=== PATIENT | male | born 1990 | race Caucasian/White ===

== ENCOUNTER 2016-04-18 19:51 | Emergency (ER) | payer SELFPAY ==
[~2016-04-18 19:51] MED LIST: NORCO1 TA1 PO
--- NOTE | 2016-04-18 21:28 | ED NURSING NOTES ---
Clinical Report - Nurses [facility] [address] [place] [address] 04/18/2016 19:52 Patient: JP ARMENDARIZ TRIAGE Triage time 20:38 Apr 18 2016. Acuity: LEVEL 4. Chief Complaint: LEFT EAR PAIN. SEPSIS SCREEN: Sepsis Screen. Negative (no infection suspected/documented). --20:43 Milady Duff R.N. 20:38 04/18/16. BP: 114/76. HR: 88. RR: 16. O2 saturation: 100%. Temp: 99.0 F. Pain level now 4/10. --20:43 Milady Duff R.N. Weight: 65.7 kg stated. Height/Length: 67 inches. BMI: 22.7. --20:37 Milady Duff R.N. Medications None. --20:38 Milady Duff R.N. Medication/allergy information source: the patient. --20:43 Milady Duff R.N. Allergies No Known Drug Allergy. --20:38 Milady Duff R.N. History Arrived by private vehicle. Historian: patient. This started just prior to arrival. ( states always has ear drainage from left ear, felt fb sensation in lt ear, used tweezers and georgi pin to try and retrieve it.). He has had ear drainage. Treatment DIRECTOR INTERNAL COMMUNICATIONS: None. SOCIAL HX: Heavy tobacco smoker (cigarette)- 1-2 packs per day. Occasional alcohol use. History of drug use: marijuana. No infectious disease exposure. ABUSE ASSESSMENT: No report of abuse. SELF HARM ASSESSMENT: A self harm assessment was performed. The patient answered "no" to the question "Have you recently felt down, depressed, or hopeless?", "Have you noticed less interest or pleasure in doing things?", "Do you have thoughts of harming or killing yourself?", "Are you here because you tried to hurt yourself?", "Have you ever tried to hurt yourself before today?", "Have you recently had thoughts about harming or killing others?" and "Do you have any dangerous items in your possession?". NUTRITIONAL RISK ASSESSMENT: The nutritional risk assessment revealed no deficiencies. FUNCTIONAL ASSESSMENT: Functional assessment: no impairments noted. LEARNING NEEDS ASSESSMENT: The learning needs assessment revealed no barriers. SKIN INTEGRITY ASSESSMENT: Skin integrity risk assessment completed. No skin integrity risk identified. --20:43 Milady Duff R.N. PROBLEMS: Cholecystitis. Dehydration. Abdominal Pain. Left ear drum perforation. --20:39 Milady Duff R.N. ADDITIONAL SURGERIES: Ear surgery. --20:39 Milady Duff R.N. Interventions ID band on patient. --20:43 Milady Duff R.N. PHYSICAL ASSESSMENT Ambulatory to room. GENERAL / NEURO / PSYCH: Alert. Appears in no acute distress. HEENT: No facial asymmetry noted. Pupils equal, round and reactive to light. EOM intact. Left ear abnormal. Right ear within normal limits. Pharynx within normal limits. RESPIRATORY: Respirations not labored. CVS: Capillary refill less than 2 seconds. SKIN: Skin is warm and dry. --20:43 Milady Duff R.N. NURSING PROGRESS NOTES 20:43 04/18/16. The initial plan of care for this patient includes an assessment with efforts to address the presence of pain. This plan of care was discussed with the patient. Reassurance given. Two patient identifiers checked. Call light placed in reach. Side rails up x 1. Bed placed in lowest position. Brakes of bed on. Care transferred. --20:43 Milady Duff R.N. DISPOSITION / DISCHARGE Condition at departure: unchanged and stable. The goals identified in the patient's plan of care were met. No learning barriers present. Discharge instructions provided and reviewed with the patient. Reviewed referral to a primary care physician for followup. Patient verbalized understanding. Written instructions provided in Slovak. The patient was discharged home and accompanied by ornamental rail installer. He left the Emergency Department ambulatory and via private vehicle. Research Analyst driving. FALL RISK ASSESSMENT: Fall risk assessment completed. No fall risk identified. --21:01 Milady Duff R.N. 20:38 04/18/16. BP: 114/76. HR: 88. RR: 16. O2 saturation: 100%. Temp: 99.0 F. Pain level now 10. --21:01 Milady Duff R.N. Departure time: 21:Apr 18 2016. --21:01 Milady Duff R.N. Locked/Released at 04/18/2016 21:01 by Milady Duff R.N.
--- NOTE | 2016-04-18 21:28 | ED CLINICAL REPORT ---
Clinical Report - Physicians/Mid Levels Located Within [facility] [address] [place] [address] 04/18/2016 19:52 Patient: JP ARMENDARIZ Time Seen: 21:16; initial patient contact, initial documentation, patient care assumed. Arrived- By private vehicle. Historian- patient. HISTORY OF PRESENT ILLNESS Chief Complaint: EARACHE. Modifying factors. Not worsened by anything. Not relieved by anything. This started just prior to arrival and is still present. Location- left ear. The pain is described as moderate. The patient has had ear pain and drainage. No nasal discharge or congestion, sinus pressure, complaint of foreign body in the ear or ear trauma. No recent barotrauma, tinnitus or sore throat. (puts cotton in his ear daily for ear drainage, and thought he didn't get all the cotton out, so used tweezers to remove cotton, and ear started bleeding and hurts, now here). Similar symptoms previously: Once, chronically, as bad. ( states he ruptured his L eardrum when he was about 8 years old and since then has chronic ear drainage). Recent medical care: Not recently seen/assessed. REVIEW OF SYSTEMS No fever or cough. All systems otherwise negative, except as recorded above. PAST HISTORY See nurses notes. PROBLEMS: Cholecystitis. Dehydration. Abdominal Pain. Left ear drum perforation. --20:39 Milady Duff R.N. ADDITIONAL SURGERIES: Ear surgery. --20:39 Milady Duff RJaquelin. SOCIAL HISTORY Heavy tobacco smoker. Occasional alcohol use. History of occasional drug use: marijuana. Not exposed to second-hand smoke at home. No recent travel. Is a local resident. FAMILY HISTORY Negative. ADDITIONAL NOTES The nursing notes have been reviewed with agreement regarding the chief complaint, HPI, ROS, PMH and patient medications and allergies. PHYSICAL EXAM Vital Signs: 04/18/2016 20:38 BP: 114/76. HR: 88. RR: 16. O2 saturation: 100%. Temp: 99.0 F. Have been reviewed as normal and appear to be correct. Appearance: Alert. No acute distress. Eyes: Eyes normal inspection. ENT: (tm obscured by growth in canal). Nose: Nose normal. Ear (right): Right ear normal. Right tympanic membrane normal. Ear (left): There is discharge in the external canal (white dc seen with mass in canal, ? tumor, polyp). There is loss of tympanic membrane landmarks. The tympanic membrane is obscured. Left ear abnormal or tympanic membrane abnormal. Throat: Pharynx normal. Neck: Normal inspection. Neck supple. Respiratory: No respiratory distress. Skin: Skin warm and dry. Normal skin color. No rash. Normal skin turgor. Extremities: Extremities exhibit normal ROM. No lower extremity edema. Neuro: Oriented X 3. No motor deficit. No sensory deficit. PROGRESS AND PROCEDURES Patient counseled in person regarding the patient's stable condition and diagnosis. 21:28. Differential Diagnosis: Other possible considerations: ear ca, tumor, polyp, scar tissue/adhesions, ruptured tm, fb. Above considerations are based on history and physical exam. Differential diagnosis was discussed with patient. Disposition: Discharged home in good and improved condition (21:28). Condition: good and stable. CLINICAL IMPRESSION Acute left otalgia. INSTRUCTIONS Warnings: GENERAL WARNINGS: Return or contact your physician immediately if your condition worsens or changes unexpectedly, if not improving as expected, or if other problems arise. Specifically return if problem worsens. Prescription Medications: Amoxicillin 500 mg tablets: Take 1 orally every 8 hours for 10 days. Dispense thirty (30). No refills. Floxin otic solution: instill 10 drops into affected ear every 12 hours for 7 days. Dispense ten (10) mL. No refills. Substitution is permissible. Understanding of the discharge instructions verbalized by patient. Follow-up with: Mario Barrios MD, ENT, , [facility], [address] [place] [address], [facility], [address] Follow up in about three days even if well. Call for an appointment. Summary of care provided to patient. (Electronically signed by Lalita Green A.R.N.P. 04/18/2016 22:46) Addenda for JP ARMENDARIZ VisitID: [id number] Date: 04/18/2016 04/18/2016 21:03 incorrect dc time (Electronically signed by Milady Duff R.N. - 04/18/2016 21:03) 04/18/2016 21:40 Amoxicillin PO Capsules 500 mg given. Allergies verified and confirmed 5 rights. (Electronically signed by Milady Duff R.N. - 04/18/2016 21:40) 04/18/2016 21:40 correct discharge time should be 21:40 (Electronically signed by Milady Duff R.N. - 04/18/2016 21:40) 04/18/2016 21:41 ultram 50 mg given po allergies confirmed 5 rights, at 21:40 (Electronically signed by Milady Duff R.N. - 04/18/2016 21:41) 06/08/2016 12:50 CHART REVIEWED AND LOCKED FOR BILLING PROCESSING (Electronically signed by Megan Parker R.N. - 06/08/2016 12:50)
--- NOTE | 2016-04-18 21:28 | ED CLINICAL REPORT ---
Clinical Report - Physicians/Mid Levels [facility] [address] [place] [address] 04/18/2016 19:52 Patient: JP ARMENDARIZ Time Seen: 21:16; initial patient contact, initial documentation, patient care assumed. Arrived- By private vehicle. Historian- patient. HISTORY OF PRESENT ILLNESS Chief Complaint: EARACHE. Modifying factors. Not worsened by anything. Not relieved by anything. This started just prior to arrival and is still present. Location- left ear. The pain is described as moderate. The patient has had ear pain and drainage. No nasal discharge or congestion, sinus pressure, complaint of foreign body in the ear or ear trauma. No recent barotrauma, tinnitus or sore throat. (puts cotton in his ear daily for ear drainage, and thought he didn't get all the cotton out, so used tweezers to remove cotton, and ear started bleeding and hurts, now here). Similar symptoms previously: Once, chronically, as bad. ( states he ruptured his L eardrum when he was about 8 years old and since then has chronic ear drainage). Recent medical care: Not recently seen/assessed. REVIEW OF SYSTEMS No fever or cough. All systems otherwise negative, except as recorded above. PAST HISTORY See nurses notes. PROBLEMS: Cholecystitis. Dehydration. Abdominal Pain. Left ear drum perforation. --20:39 Milady Duff R.N. ADDITIONAL SURGERIES: Ear surgery. --20:39 Milady Duff RJaquelin. SOCIAL HISTORY Heavy tobacco smoker. Occasional alcohol use. History of occasional drug use: marijuana. Not exposed to second-hand smoke at home. No recent travel. Is a local resident. FAMILY HISTORY Negative. ADDITIONAL NOTES The nursing notes have been reviewed with agreement regarding the chief complaint, HPI, ROS, PMH and patient medications and allergies. PHYSICAL EXAM Vital Signs: 04/18/2016 20:38 BP: 114/76. HR: 88. RR: 16. O2 saturation: 100%. Temp: 99.0 F. Have been reviewed as normal and appear to be correct. Appearance: Alert. No acute distress. Eyes: Eyes normal inspection. ENT: (tm obscured by growth in canal). Nose: Nose normal. Ear (right): Right ear normal. Right tympanic membrane normal. Ear (left): There is discharge in the external canal (white dc seen with mass in canal, ? tumor, polyp). There is loss of tympanic membrane landmarks. The tympanic membrane is obscured. Left ear abnormal or tympanic membrane abnormal. Throat: Pharynx normal. Neck: Normal inspection. Neck supple. Respiratory: No respiratory distress. Skin: Skin warm and dry. Normal skin color. No rash. Normal skin turgor. Extremities: Extremities exhibit normal ROM. No lower extremity edema. Neuro: Oriented X 3. No motor deficit. No sensory deficit. PROGRESS AND PROCEDURES Patient counseled in person regarding the patient's stable condition and diagnosis. 21:28. Differential Diagnosis: Other possible considerations: ear ca, tumor, polyp, scar tissue/adhesions, ruptured tm, fb. Above considerations are based on history and physical exam. Differential diagnosis was discussed with patient. Disposition: Discharged home in good and improved condition (21:28). Condition: good and stable. CLINICAL IMPRESSION Acute left otalgia. INSTRUCTIONS Warnings: GENERAL WARNINGS: Return or contact your physician immediately if your condition worsens or changes unexpectedly, if not improving as expected, or if other problems arise. Specifically return if problem worsens. Prescription Medications: Amoxicillin 500 mg tablets: Take 1 orally every 8 hours for 10 days. Dispense thirty (30). No refills. Floxin otic solution: instill 10 drops into affected ear every 12 hours for 7 days. Dispense ten (10) mL. No refills. Substitution is permissible. Understanding of the discharge instructions verbalized by patient. Follow-up with: Mario Barrios MD, ENT, , [facility], [address] [place] [address], [facility], [address] Follow up in about three days even if well. Call for an appointment. Summary of care provided to patient. (Electronically signed by Lalita Green A.R.N.P. 04/18/2016 22:46) Addenda for JP ARMENDARIZ VisitID: [id number] Date: 04/18/2016 04/18/2016 21:03 incorrect dc time (Electronically signed by Milady Duff R.N. - 04/18/2016 21:03) 04/18/2016 21:40 Amoxicillin PO Capsules 500 mg given. Allergies verified and confirmed 5 rights. (Electronically signed by Milady Duff R.N. - 04/18/2016 21:40) 04/18/2016 21:40 correct discharge time should be 21:40 (Electronically signed by Milady Duff R.N. - 04/18/2016 21:40) 04/18/2016 21:41 ultram 50 mg given po allergies confirmed 5 rights, at 21:40 (Electronically signed by Milady Duff R.N. - 04/18/2016 21:41) 06/08/2016 12:50 CHART REVIEWED AND LOCKED FOR BILLING PROCESSING (Electronically signed by Megan Parker R.N. - 06/08/2016 12:50)
--- NOTE | 2016-04-18 21:28 | ED NURSING NOTES ---
Clinical Report - Nurses [facility] [address] [place] [address] 04/18/2016 19:52 Patient: JP ARMENDARIZ TRIAGE Triage time 20:38 Apr 18 2016. Acuity: LEVEL 4. Chief Complaint: LEFT EAR PAIN. SEPSIS SCREEN: Sepsis Screen. Negative (no infection suspected/documented). --20:43 Milady Duff R.N. 20:38 04/18/16. BP: 114/76. HR: 88. RR: 16. O2 saturation: 100%. Temp: 99.0 F. Pain level now 4/10. --20:43 Milady Duff R.N. Weight: 65.7 kg stated. Height/Length: 67 inches. BMI: 22.7. --20:37 Milady Duff R.N. Medications None. --20:38 Milady Duff R.N. Medication/allergy information source: the patient. --20:43 Milady Duff R.N. Allergies No Known Drug Allergy. --20:38 Milady Duff R.N. History Arrived by private vehicle. Historian: patient. This started just prior to arrival. ( states always has ear drainage from left ear, felt fb sensation in lt ear, used tweezers and georgi pin to try and retrieve it.). He has had ear drainage. Treatment CONCRETE PRODUCTS MACHINE OPERATOR: None. SOCIAL HX: Heavy tobacco smoker (cigarette)- 1-2 packs per day. Occasional alcohol use. History of drug use: marijuana. No infectious disease exposure. ABUSE ASSESSMENT: No report of abuse. SELF HARM ASSESSMENT: A self harm assessment was performed. The patient answered "no" to the question "Have you recently felt down, depressed, or hopeless?", "Have you noticed less interest or pleasure in doing things?", "Do you have thoughts of harming or killing yourself?", "Are you here because you tried to hurt yourself?", "Have you ever tried to hurt yourself before today?", "Have you recently had thoughts about harming or killing others?" and "Do you have any dangerous items in your possession?". NUTRITIONAL RISK ASSESSMENT: The nutritional risk assessment revealed no deficiencies. FUNCTIONAL ASSESSMENT: Functional assessment: no impairments noted. LEARNING NEEDS ASSESSMENT: The learning needs assessment revealed no barriers. SKIN INTEGRITY ASSESSMENT: Skin integrity risk assessment completed. No skin integrity risk identified. --20:43 Milady Duff R.N. PROBLEMS: Cholecystitis. Dehydration. Abdominal Pain. Left ear drum perforation. --20:39 Milady Duff R.N. ADDITIONAL SURGERIES: Ear surgery. --20:39 Milady Duff R.N. Interventions ID band on patient. --20:43 Milady Duff R.N. PHYSICAL ASSESSMENT Ambulatory to room. GENERAL / NEURO / PSYCH: Alert. Appears in no acute distress. HEENT: No facial asymmetry noted. Pupils equal, round and reactive to light. EOM intact. Left ear abnormal. Right ear within normal limits. Pharynx within normal limits. RESPIRATORY: Respirations not labored. CVS: Capillary refill less than 2 seconds. SKIN: Skin is warm and dry. --20:43 Milady Duff R.N. NURSING PROGRESS NOTES 20:43 04/18/16. The initial plan of care for this patient includes an assessment with efforts to address the presence of pain. This plan of care was discussed with the patient. Reassurance given. Two patient identifiers checked. Call light placed in reach. Side rails up x 1. Bed placed in lowest position. Brakes of bed on. Care transferred. --20:43 Milady Duff R.N. DISPOSITION / DISCHARGE Condition at departure: unchanged and stable. The goals identified in the patient's plan of care were met. No learning barriers present. Discharge instructions provided and reviewed with the patient. Reviewed referral to a primary care physician for followup. Patient verbalized understanding. Written instructions provided in Vietnamese. The patient was discharged home and accompanied by construction carpenters helper. He left the Emergency Department ambulatory and via private vehicle. Regional Clinical Director driving. FALL RISK ASSESSMENT: Fall risk assessment completed. No fall risk identified. --21:01 Milady Duff R.N. 20:38 04/18/16. BP: 114/76. HR: 88. RR: 16. O2 saturation: 100%. Temp: 99.0 F. Pain level now 10. --21:01 Milady Duff R.N. Departure time: 21:Apr 18 2016. --21:01 Milady Duff R.N. Locked/Released at 04/18/2016 21:01 by Milady Duff R.N.
--- NOTE | 2016-06-08 12:57 | ED MAR SUMMARY ---
..... Medication Administration Record [facility] [address] [place] [place] [address] Patient: JP ARMENDARIZ Visit ID: [id number] 26y, M Weight: 65.7 kg Height/Length: 67 in BMI: 22.7 ALLERGIES: No Known Drug Allergy Given 21:04/18/2016 Milady Duff RTrent Medication Administered: ULTRAM [PO] (TRAMADOL HCL), Dose: 50 mg Tablets PO. Medication Ordered: Ultram PO 50 mg (NOW). Given 21:04/18/2016 Milady Duff RTrent Medication Administered: AMOXICILLIN [PO], Dose: 500 mg Capsules PO. Medication Ordered: Amoxicillin PO 500 mg (NOW).
--- NOTE | 2016-06-08 12:57 | ED DISCHARGE INSTRUCTIONS ---
Patient: JP ARMENDARIZ General Instructions [facility] VisitID: [id number] [address] [place] [address] 26y, M Registration Date/Time: 04/18/2016 Acute left otalgia. INSTRUCTIONS Warnings: GENERAL WARNINGS: Return or contact your physician immediately if your condition worsens or changes unexpectedly, if not improving as expected, or if other problems arise. Specifically return if problem worsens. Prescription Medications: Amoxicillin 500 mg tablets: Take 1 orally every 8 hours for 10 days. Dispense thirty (30). No refills. Floxin otic solution: instill 10 drops into affected ear every 12 hours for 7 days. Dispense ten (10) mL. No refills. Substitution is permissible. Understanding of the discharge instructions verbalized by patient. Follow-up with: Mario Barrios MD, ENT, , [facility], [address] [place] [address], [id number] Follow up in about three days even if well. Call for an appointment. Summary of care provided to patient. ADDITIONAL INFORMATION Amoxicillin Trihydrate Oral tablet What is this medicine? AMOXICILLIN (a mox i GAUTAM in) is a penicillin antibiotic. It is used to treat certain kinds of bacterial infections. It will not work for colds, flu, or other viral infections. How should I use this medicine? Take this medicine by mouth with a glass of water. Follow the directions on your prescription label. You may take this medicine with food or on an empty stomach. Take your medicine at regular intervals. Do not take your medicine more often than directed. Take all of your medicine as directed even if you think your are better. Do not skip doses or stop your medicine early. Talk to your powder blender and pourer regarding the use of this medicine in children. While this drug may be prescribed for selected conditions, precautions do apply. What side effects may I notice from receiving this medicine? Side effects that you should report to your doctor or health critical care registered nurse as soon as possible: allergic reactions like skin rash, itching or hives, swelling of the face, lips, or tongue breathing problems dark urine redness, blistering, peeling or loosening of the skin, including inside the mouth seizures severe or watery diarrhea trouble passing urine or change in the amount of urine unusual bleeding or bruising unusually weak or tired yellowing of the eyes or skin Side effects that usually do not require medical attention (report to your doctor or health critical care registered nurse if they continue or are bothersome): dizziness headache stomach upset trouble sleeping What may interact with this medicine? amiloride control pills chloramphenicol macrolides probenecid sulfonamides tetracyclines What if I miss a dose? If you miss a dose, take it as soon as you can. If it is almost time for your next dose, take only that dose. Do not take double or extra doses. Where should I keep my medicine? Keep out of the reach of children. Store between 68 and 77 degrees F (20 and 25 degrees C). Keep bottle closed tightly. Throw away any unused medicine after the expiration date. What should I tell my health care provider before I take this medicine? They need to know if you have any of these conditions: asthma kidney disease an unusual or allergic reaction to amoxicillin, other penicillins, cephalosporin antibiotics, other medicines, foods, dyes, or preservatives or trying to get breast-feeding What should I watch for while using this medicine? Tell your doctor or health critical care registered nurse if your symptoms do not improve in 2 or 3 days. Take all of the doses of your medicine as directed. Do not skip doses or stop your medicine early. If you are diabetic, you may get a false positive result for sugar in your urine with certain brands of urine tests. Check with your doctor. Do not treat diarrhea with [id number] products. Contact your doctor if you have diarrhea that lasts more than 2 days or if the diarrhea is severe and watery. You have been given the following additional information: Amoxicillin Trihydrate Oral tablet (Electronically signed by Lalita Green A.R.N.P. 04/18/2016 22:46)
--- NOTE | 2016-06-08 12:57 | ED DISCHARGE INSTRUCTIONS ---
Patient: JP ARMENDARIZ General Instructions [facility] VisitID: [id number] [address] [place] [address] 26y, M Registration Date/Time: 04/18/2016 Acute left otalgia. INSTRUCTIONS Warnings: GENERAL WARNINGS: Return or contact your physician immediately if your condition worsens or changes unexpectedly, if not improving as expected, or if other problems arise. Specifically return if problem worsens. Prescription Medications: Amoxicillin 500 mg tablets: Take 1 orally every 8 hours for 10 days. Dispense thirty (30). No refills. Floxin otic solution: instill 10 drops into affected ear every 12 hours for 7 days. Dispense ten (10) mL. No refills. Substitution is permissible. Understanding of the discharge instructions verbalized by patient. Follow-up with: Mario Barrios MD, ENT, , [facility], [address] [place] [address], [id number] Follow up in about three days even if well. Call for an appointment. Summary of care provided to patient. ADDITIONAL INFORMATION Amoxicillin Trihydrate Oral tablet What is this medicine? AMOXICILLIN (a mox i GAUTAM in) is a penicillin antibiotic. It is used to treat certain kinds of bacterial infections. It will not work for colds, flu, or other viral infections. How should I use this medicine? Take this medicine by mouth with a glass of water. Follow the directions on your prescription label. You may take this medicine with food or on an empty stomach. Take your medicine at regular intervals. Do not take your medicine more often than directed. Take all of your medicine as directed even if you think your are better. Do not skip doses or stop your medicine early. Talk to your customer service clerk regarding the use of this medicine in children. While this drug may be prescribed for selected conditions, precautions do apply. What side effects may I notice from receiving this medicine? Side effects that you should report to your doctor or health resident caregiver as soon as possible: allergic reactions like skin rash, itching or hives, swelling of the face, lips, or tongue breathing problems dark urine redness, blistering, peeling or loosening of the skin, including inside the mouth seizures severe or watery diarrhea trouble passing urine or change in the amount of urine unusual bleeding or bruising unusually weak or tired yellowing of the eyes or skin Side effects that usually do not require medical attention (report to your doctor or health resident caregiver if they continue or are bothersome): dizziness headache stomach upset trouble sleeping What may interact with this medicine? amiloride control pills chloramphenicol macrolides probenecid sulfonamides tetracyclines What if I miss a dose? If you miss a dose, take it as soon as you can. If it is almost time for your next dose, take only that dose. Do not take double or extra doses. Where should I keep my medicine? Keep out of the reach of children. Store between 68 and 77 degrees F (20 and 25 degrees C). Keep bottle closed tightly. Throw away any unused medicine after the expiration date. What should I tell my health care provider before I take this medicine? They need to know if you have any of these conditions: asthma kidney disease an unusual or allergic reaction to amoxicillin, other penicillins, cephalosporin antibiotics, other medicines, foods, dyes, or preservatives or trying to get breast-feeding What should I watch for while using this medicine? Tell your doctor or health resident caregiver if your symptoms do not improve in 2 or 3 days. Take all of the doses of your medicine as directed. Do not skip doses or stop your medicine early. If you are diabetic, you may get a false positive result for sugar in your urine with certain brands of urine tests. Check with your doctor. Do not treat diarrhea with [id number] products. Contact your doctor if you have diarrhea that lasts more than 2 days or if the diarrhea is severe and watery. You have been given the following additional information: Amoxicillin Trihydrate Oral tablet (Electronically signed by Lalita Green A.R.N.P. 04/18/2016 22:46)
--- NOTE | 2016-06-08 12:57 | ED ORDER SUMMARY ---
..... Patient: JP ARMENDARIZ OrderSheet Located [facility] VisitID: [id number] [address] [place] [address] 26y, M Registration Date/Time: 04/18/2016 ORDER SHEET Weight: 65.7 kg (stated) Allergies: No Known Drug Allergy GENERAL ORDERS: MEDICATION ORDERS: Ultram PO 50 mg (NOW) (21:30 04/18/2016 HBivens A.R.N.P.) (21:38 EInderbitzen R.N.) Amoxicillin PO 500 mg (NOW) (21:30 04/18/2016 HBivens A.R.N.P.) (21:39 EInderbitzen R.N.) IV FLUIDS: ORDER SHEET NOTES: [Electronically signed by Lalita Green.R.N.PKaren (22:46 04/18/2016)] [Electronically locked/signed by Megan Parker R.N. (12:56 06/08/2016)]
--- NOTE | 2016-06-08 12:57 | ED MED RECONCILIATION SUMMARY ---
Patient: JP ARMENDARIZ Medication Reconciliation Report [facility] VisitID: [id number] [address] [place] [address] 26y, M Registration Date/Time: 04/18/2016 Weight: 65.7 kg Height/Length: 67 in. BMI: 22.7 ALLERGIES: No Known Drug Allergy The patient's Home Medications are listed below: NONE. The source(s) of the original Home Medication information: patient The following Medications were given to the patient in the Emergency Department: Ultram [PO] PO 50 mg, administered: 04/18/2016 9:35:00 PM Amoxicillin [PO] PO 500 mg, administered: 04/18/2016 9:35:00 PM The following Medications were prescribed to the patient: Amoxicillin 500 mg tablets: Take 1 orally every 8 hours for 10 days. Dispense thirty (30). No refills. -- Lalita Green A.R.N.P. Floxin otic solution: instill 10 drops into affected ear every 12 hours for 7 days. Dispense ten (10) mL. No refills. Substitution is permissible. -- Lalita Green A.R.N.P.
--- NOTE | 2016-06-08 12:57 | ED MED RECONCILIATION SUMMARY ---
Patient: JP ARMENDARIZ Medication Reconciliation Report [facility] VisitID: [id number] [address] [place] [address] 26y, M Registration Date/Time: 04/18/2016 Weight: 65.7 kg Height/Length: 67 in. BMI: 22.7 ALLERGIES: No Known Drug Allergy The patient's Home Medications are listed below: NONE. The source(s) of the original Home Medication information: patient The following Medications were given to the patient in the Emergency Department: Ultram [PO] PO 50 mg, administered: 04/18/2016 9:35:00 PM Amoxicillin [PO] PO 500 mg, administered: 04/18/2016 9:35:00 PM The following Medications were prescribed to the patient: Amoxicillin 500 mg tablets: Take 1 orally every 8 hours for 10 days. Dispense thirty (30). No refills. -- Lalita Green A.R.N.P. Floxin otic solution: instill 10 drops into affected ear every 12 hours for 7 days. Dispense ten (10) mL. No refills. Substitution is permissible. -- Lalita Green A.R.N.P.
--- NOTE | 2016-06-08 12:57 | ED MAR SUMMARY ---
..... Medication Administration Record [facility] [address] [place] [address] Patient: JP ARMENDARIZ Visit ID: [id number] 26y, M Weight: 65.7 kg Height/Length: 67 in BMI: 22.7 ALLERGIES: No Known Drug Allergy Given 21:04/18/2016 Milady Duff RTrent Medication Administered: ULTRAM [PO] (TRAMADOL HCL), Dose: 50 mg Tablets PO. Medication Ordered: Ultram PO 50 mg (NOW). Given 21:04/18/2016 Milady Duff RTrent Medication Administered: AMOXICILLIN [PO], Dose: 500 mg Capsules PO. Medication Ordered: Amoxicillin PO 500 mg (NOW).
--- NOTE | 2016-06-08 12:57 | ED ORDER SUMMARY ---
..... Patient: JP ARMENDARIZ OrderSheet [facility] VisitID: [id number] [address] [place] [address] 26y, M Registration Date/Time: 04/18/2016 ORDER SHEET Weight: 65.7 kg (stated) Allergies: No Known Drug Allergy GENERAL ORDERS: MEDICATION ORDERS: Ultram PO 50 mg (NOW) (21:30 04/18/2016 HBivens A.R.N.P.) (21:38 EInderbitzen R.N.) Amoxicillin PO 500 mg (NOW) (21:30 04/18/2016 HBivens A.R.N.P.) (21:39 EInderbitzen R.N.) IV FLUIDS: ORDER SHEET NOTES: [Electronically signed by Lalita Green.R.N.PKaren (22:46 04/18/2016)] [Electronically locked/signed by Megan Parker R.N. (12:56 06/08/2016)]
== END 2016-04-18 21:41 | disposition home or self-care (01) ==
LOC: ED SRH 19:51
DX: H92.02 Otalgia, left ear (principal); F17.200 Nicotine dependence, unspecified, uncomplicated